=== PATIENT | male | born 1950 | race Two or more races ===

== ENCOUNTER 2025-01-03 10:14 | Emergency (ER) | payer MEDICARE, MEDICAID ==
[~2025-01-03] VITALS: Ht 172.7 cm; Wt 56.2 kg
--- NOTE | 2025-01-03 10:37 | ED.PDOC ---
History of Present Illness HPI Comments 74 y.o male with PMHx of DM, HTN, and hyperlipidemia, presents to the ED for an evaluation of insomnia. Patient has not slept for the past 6 days, states he is desperate to rest but is unable to for unknown reasons. Patient reports similar events in the past, states he was prescribed sleeping medication in which helped him sleep but mentions he ran out of them. Patient denies any pain, nausea, vomiting, diarrhea, fever, chills. Patient mentions driving himself to the ED. Chief Complaint: Anxiety Time Seen by MD: 10:25 Reviewed Notes: Nurses Notes, Medications, Allergies Allergies: Coded Allergies: NO KNOWN ALLERGIES (Unverified , 01/03/25) Information Source: Patient Mode of Arrival: EMS Severity: Moderate Timing: Days (6) Duration: Since onset Prehospital treatment: None Past Medical History PAST MEDICAL HISTORY: DM, High Lipids, HTN Surgical History (Other): Abdominal- unknown Family History Family History: Reviewed,noncontributory to illness Social History Smoker: Non-Smoker Alcohol: Denies ETOH Use Drugs: Denies Drug Use Lives In: Home Constitutional: denies: chills, diaphoresis, fatigue, fever, malaise, sweats, weakness, others EENTM: denies: blurred vision, double vision, ear bleeding, ear discharge, ear drainage, ear pain, ear ringing, eye pain, eye redness, hearing loss, mouth pain, mouth swelling, nasal discharge, nose bleeding, nose congestion, nose estrella n, photophobia, tearing, throat pain, throat swelling, voice changes, others Respiratory: denies: cough, hemoptysis, orthopnea, SOB at rest, shortness of breath, SOB with excertion, stridor, wheezing, others Cardiovascular: denies: chest pain, dizzy spells, diaphoresis, Dyspnea on exertion, edema, irregular heart beat, left arm pain, lightheadedness, palpitations, PND, syncope, others Gastrointestinal: denies: abdomen distended, abdominal pain, blood streaked bowels, constipated, diarrhea, dysphagia, difficulty swallowing, hematemesis, melena, nausea, poor appetite, poor fluid intake, rectal bleeding, rectal pain, vomiting, others Genitourinary: denies: burning, dysuria, flank pain, frequency, hematuria, incontinence, penile discharge, penile sore, pain, testicle pain, testicle swelling, urgency, others Neurological: denies: dizziness, fainting, headache, left sided numbness, left sided weakness, numbness, paresthesia, pre-existing deficit, right sided numbness, right sided weakness, seizure, speech problems, tingling, tremors, weakness, others Musculoskeletal: denies: back pain, gout, joint pain, joint swelling, muscle pain, muscle stiffness, neck pain, others Integumetry: denies: bruises, change in color, change in hair/nails, dryness, laceration, lesions, lumps, rash, wounds, others Allergic/Immunocompromised: denies: Difficulty Healing, Frequent Infections, Hives, Itching, others Hematologic/Lymphatic: denies: anemia, blood clots, easy bleeding, easy bruising, swollen glands, others Endocrine: denies: excessive hunger, excessive sweating, excessive thirst, excessive urination, flushing, intolerance to cold, intolerance to heat, unexplained weight gain, unexplained weight loss, others Psychiatric: reports: anxiety; denies: bipolar disorder, depression, hopeless, panic disorder, schizophrenia, sleepless, suicidal, others All Other Systems: Reviewed and Negative Physical Exam General Appearance: Mild Distress, Thin HEENT: Normal ENT Inspection, Pharynx Normal, TMs Normal Neck: Full Range of Motion, Non-Tender, Normal, Normal Inspection Respiratory: Chest Non-Tender, Lungs Clear, No Accessory Muscle Use, No Respiratory Distress, Normal Breath Sounds Cardiovascular: No Edema, No JVD, No Murmur, No Gallop, Normal Peripheral Pulses, Regular Rate/Rhythm Breast Exam: Deferred Gastrointestinal: No Organomegaly, Non Tender, No Pulsatile Mass, Normal Bowel Sounds, Soft Genitalia: Deferred Pelvic: Deferred Rectal: Deferred Extremities: No calf tenderness, Normal capillary refill, Normal inspection, Normal range of motion, Non-tender, No pedal edema Musculoskeletal : Apperance: Normal Neurologic: Alert, 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 Was a procedure done?: No Differential Dx Considerations may include: sleep apnea, circadian rhythm disorders, depression, anxiety X-Ray, Labs, Meds, VS Vital Signs Date Time Temp Pulse Resp B/P (MAP) Pulse Ox O2 Delivery O2 Flow Rate FiO2 01/03/25 12:30 92 14 118/65 (82) 98 01/03/25 12:30 92 14 96 Room Air* 0 21 01/03/25 11:53 100 16 98 Room Air* 0 21 01/03/25 11:44 97.9 106 17 118/71 (87) 98 97.9 01/03/25 10:32 97.9 112 18 117/77 (90) 96 97.9 Lab Test 01/03/25 12:37 01/03/25 10:44 Range/Units POC Glucose 352 H 70-106 mg/dl White Blood Count 9.0 4.4-10.8 10^3/uL Red Blood Count 4.15 L 4.5-5.90 10^6/uL Hemoglobin 13.2 L 13.5-17.5 g/dL Hematocrit 37.9 L 41.0-53.0 % Mean Corpuscular Volume 91.3 80.0-100.0 fL Mean Corpuscular Hemoglobin 31.7 28.0-32.0 pg Mean Corpuscular Hemoglobin Concent 34.8 32.0-36.0 g/dL Red Cell Distribution Width 13.2 11.8-14.3 % Platelet Count 371 140-450 10^3/uL Mean Platelet Volume 7.1 6.9-10.8 fL Neutrophils (%) (Auto) 79.3 37.0-80.0 % Lymphocytes (%) (Auto) 15.1 10.0-50.0 % Monocytes (%) (Auto) 3.6 0.0-12.0 % Eosinophils (%) (Auto) 1.4 0.0-7.0 % Basophils (%) (Auto) 0.6 0.0-2.0 % Neutrophils # (Auto) 7.1 1.6-8.6 10 ^3/uL Lymphocytes # (Auto) 1.4 0.4-5.4 10 ^3/uL Monocytes # (Auto) 0.3 0-1.3 10 ^3/uL Eosinophils # (Auto) 0.1 0-0.8 10 ^3/uL Basophils # (Auto) 0.1 0-0.2 10 ^3/uL Nucleated Red Blood Cells 0.1 % Sodium Level 129 L 136-145 mmol/L Potassium Level 3.9 3.5-5.1 mmol/L Chloride Level 95 L 98-107 mmol/L Carbon Dioxide Level 25 20-31 mmol/L Anion Gap 9 5-15 Blood Urea Nitrogen 16 9-23 mg/dL Creatinine 1.35 H 0.700-1.30 mg/dL Glomerular Filtration Rate Calc 54 >90 mL/min BUN/Creatinine Ratio 11.9 10.0-20.0 Serum Glucose 540 *H 74-106 mg/dL Calcium Level 9.6 8.7-10.4 mg/dL Current Medications Medications (Trade) Dose Ordered Sig/Julia Route Start Time Stop Time Status Last Admin Sodium Chloride 500 ml @ 500 mls/hr Q1H ONCE IV 01/03/25 11:30 01/03/25 12:29 DC 01/03/25 11:52 Insulin Human Regular (InsuLIN R) 5 units ONCE ONCE IV 01/03/25 11:30 01/03/25 11:31 DC 01/03/25 11:53 IV Hep-Lock was established. The patient had a serum glucose of 540 The BUN is 16 and the creatinine is 1.35 The patient was also hyponatremic and hypochloremic The patient is CBC is within normal limits The patient was being admitted to the hospitalist after being given insulin 5 units IV push The patient understands and is in agreement with the management The patient is admitted Time of 1ST Reevaluation: 10:37 Reevaluation 1ST: Unchanged Patient Education/Counseling: Diagnosis, Treatment, Prognosis Family Education/Counseling: No Family Present Departure 1 Departure Time of Disposition: 12:58 Impression: Primary Impression: Generalized weakness Additional Impressions: Hyperglycemia Hypochloremia Hyponatremia Disposition: ADMITTED INPATIENT Admit to: Med Surg Condition: Fair Critical Care Note Critical Care Time?: No Stability Stability form required: Yes Unstable for transfer: ED Physician Assesment (Clinical assesment) I personally scribed for ANTON CASON MD ([email or web address]) on 01/03/25 at 10:37. Electronically submitted by Oly Mark ([facility]). ANTON CASON MD Jan 03, 2025 10:37
[2025-01-03 10:55] LABS: Basophils # (auto) 0.1 10 ^3/uL (0-0.2); Basophils % (auto) 0.6 % (0.0-2.0); Eosinophils # (auto) 0.1 10 ^3/uL (0-0.8); Eosinophils % (auto) 1.4 % (0.0-7.0); Hematocrit 37.9 % (41.0-53.0); Hemoglobin 13.2 g/dL (13.5-17.5); Lymphocytes # (auto) 1.4 10 ^3/uL (0.4-5.4); Lymphocytes % (auto) 15.1 % (10.0-50.0); Mean Corpuscular Hemoglobin 31.7 pg (28.0-32.0); Mean Corpuscular Hgb Conc. 34.8 g/dL (32.0-36.0); Mean Corpuscular Volume 91.3 fL (80.0-100.0); Monocytes # (auto) 0.3 10 ^3/uL (0-1.3); Monocytes % (auto) 3.6 % (0.0-12.0); Neutrophils # (auto) 7.1 10 ^3/uL (1.6-8.6); Neutrophils % (auto) 79.3 % (37.0-80.0); Nucleated Red Blood Cells % 0.1 %; Platelet Count (auto) 371 10^3/uL (140-450); Red Blood Cells 4.15 10^6/uL (4.5-5.90); Red Cell Distribution Width 13.2 % (11.8-14.3)
[2025-01-03 11:03] LABS: Potassium 3.9 mmol/L (3.5-5.1)
[2025-01-03 11:04] LABS: Anion Gap 9 (5-15); Carbon Dioxide 25 mmol/L (20-31)
[2025-01-03 11:05] LABS: Calcium 9.6 mg/dL (8.7-10.4)
[2025-01-03 11:07] LABS: Chloride 95 mmol/L (98-107); Sodium 129 mmol/L (136-145)
[2025-01-03 11:10] LABS: BUN/Creatinine Ratio 11.9 (10.0-20.0); Blood Urea Nitrogen 16 mg/dL (9-23)
[2025-01-03 11:17] LABS: Glucose 540 mg/dL (74-106)
[2025-01-03] MEDS: SODIUM CHLORIDE 0.9% 500 ML IV ONE (11:52)
[2025-01-03 11:53] VITALS: PULSE 100; RESP 16; O2SAT 98
[2025-01-03] MEDS: InsuLIN REG 1unit/0.01ml Soln (100units/ml) IV ONE (11:53)
[2025-01-03 12:30] VITALS: PULSE 92; RESP 14; O2SAT 96
[2025-01-03 18:00] VITALS: BP 105/63; PULSE 100; RESP 22; TEMP 98.7; O2SAT 95
== END 2025-01-03 18:45 | disposition left against medical advice (07) ==
LOC: ER 10:14
DX: E87.1 Hypo-osmolality and hyponatremia (principal); E11.65 Type 2 diabetes mellitus with hyperglycemia; E87.8 Other disorders of electrolyte and fluid balance, not elsewhere classified; R53.1 Weakness; E78.5 Hyperlipidemia, unspecified; I10 Essential (primary) hypertension; G47.00 Insomnia, unspecified
CPT/HCPCS: 36415; 80048; 82947; 85025; 96374; 99285; J1815; 82962

== ENCOUNTER 2025-01-08 10:39 | Emergency (ER) | payer MEDICARE, MEDICAID ==
[~2025-01-08] VITALS: Ht 172.7 cm; Wt 56.5 kg
[2025-01-08 10:45] VITALS: BP 115/76; RESP 18; TEMP 98.6; O2SAT 96
[2025-01-08] MEDS ORDERED: SODIUM CHLORIDE 0.9% 1,000 ML IV ONE (11:00)
[2025-01-08 11:10] VITALS: PULSE 100
--- NOTE | 2025-01-08 11:10 | ED.PDOC ---
History of Present Illness HPI Comments 74 y/o M, with a history of DM, HLD, HTN, presents with c/o generalized body pain and fatigue, nonproductive cough, and confusion for the past 7x days, today. Patient is a Welsh speaker and a poor historian and endorses on ongoing symptoms following initial unprovoked onset. He describes his confusion as if he has "no control of [his] brain" sensation. Patient further informs on, recently, moving to the area from [place], [place] and not having any current PCP. He endorses on no recent sick contact, substance use/exposure, noncompliance with medications, or any further relevant/pertinent history. Patient denies any chest pain, shortness of breath, nausea, vomiting, urinary symptoms, fever, chills, or other associated symptoms or modifying factors at this time. Chief Complaint: Abdominal Pain Time Seen by MD: 10:55 Reviewed Notes: Nurses Notes, Medications, Allergies Allergies: Coded Allergies: NO KNOWN ALLERGIES (Unverified , 01/03/25) Information Source: Patient Mode of Arrival: Ambulatory Severity: Moderate Timing: Days Duration: Since onset Prehospital treatment: None Past Medical History PAST MEDICAL HISTORY: DM, High Lipids, HTN Surgical History (Other): unspecified abdominal surgery for unkown "infection" in Family History Family History: Reviewed,noncontributory to illness Social History Smoker: Non-Smoker Alcohol: Denies ETOH Use Drugs: Denies Drug Use Lives In: Home All Other Systems: Reviewed and Negative (Comprehensive systems review obtained and negative except for what is stated in the HPI.) Was a procedure done? Was a procedure done?: No EKG EKG : Pulse Rate (adult): 100 [place]: Normal Cardiac Rhythm: ST Hypertrophy: None ST: Normal Comments Left anterior fascicular block abnormal R-wave progression, early transition Differential Dx Considerations may include: viral syndrome, UTI, URI, encephalopathy, electrolyte imbalance, dehydration, musculoskeletal pain, hyperglycemia, among others X-Ray, Labs, Meds, VS Vital Signs Date Time Temp Pulse Resp B/P (MAP) Pulse Ox O2 Delivery O2 Flow Rate FiO2 01/08/25 11:10 100 01/08/25 10:55 100 01/08/25 10:45 98.6 102 18 115/76 (89) 96 98.6 Lab Test 01/08/25 11:14 01/08/25 11:00 01/08/25 10:59 Range/Units White Blood Count 7.1 4.4-10.8 10^3/uL Red Blood Count 4.44 L 4.5-5.90 10^6/uL Hemoglobin 13.7 13.5-17.5 g/dL Hematocrit 40.5 L 41.0-53.0 % Mean Corpuscular Volume 91.2 80.0-100.0 fL Mean Corpuscular Hemoglobin 30.9 28.0-32.0 pg Mean Corpuscular Hemoglobin Concent 33.8 32.0-36.0 g/dL Red Cell Distribution Width 12.9 11.8-14.3 % Platelet Count 360 140-450 10^3/uL Mean Platelet Volume 7.7 6.9-10.8 fL Neutrophils (%) (Auto) 74.7 37.0-80.0 % Lymphocytes (%) (Auto) 18.0 10.0-50.0 % Monocytes (%) (Auto) 4.2 0.0-12.0 % Eosinophils (%) (Auto) 2.2 0.0-7.0 % Basophils (%) (Auto) 0.9 0.0-2.0 % Neutrophils # (Auto) 5.3 1.6-8.6 10 ^3/uL Lymphocytes # (Auto) 1.3 0.4-5.4 10 ^3/uL Monocytes # (Auto) 0.3 0-1.3 10 ^3/uL Eosinophils # (Auto) 0.2 0-0.8 10 ^3/uL Basophils # (Auto) 0.1 0-0.2 10 ^3/uL Nucleated Red Blood Cells 0.0 % Sodium Level 129 L 136-145 mmol/L Potassium Level 4.4 3.5-5.1 mmol/L Chloride Level 95 L 98-107 mmol/L Carbon Dioxide Level 27 20-31 mmol/L Anion Gap 7 5-15 Blood Urea Nitrogen 19 9-23 mg/dL Creatinine 1.44 H 0.700-1.30 mg/dL Glomerular Filtration Rate Calc 50 >90 mL/min BUN/Creatinine Ratio 13.2 10.0-20.0 Serum Glucose 583 *H 74-106 mg/dL Calcium Level 9.8 8.7-10.4 mg/dL B-Type Natriuretic Peptide Pending Beta-Hydroxybutyric Acid Pending Thyroid Stimulating Hormone (TSH) 0.69 0.55-4.78 uIU/mL POC Glucose 584 *H 518 *H 70-106 mg/dl [place] [id number] Ph: [phone] DIAGNOSTIC IMAGING Diagnostic Imaging Report : [id number] Signed PATIENT: JOSE CAICEDO ACCT: [id number] UNIT: [id number] : 1950 LOC: ER ROOM / BED: / AGE / SEX: 74 / M ADM STATUS: REG ER SERVICE 105 ORDERING PHYSICIAN: DENI LOVE MD PROCEDURE(s): CXR1 - CHEST XRAY 1 VIEW REASON: COUGH ORDER NUMBER(s): [id number], ACCESSION NUMBER(s): [id number] EXAM: XY CHEST XRAY 1 VIEW REASON FOR EXAM: COUGH TECHNIQUE: 1 view of the chest COMPARISON: None FINDINGS: LUNGS: No pleural effusion, consolidation, or pneumothorax MEDIASTINUM: Normal cardiac size BONES: Multiple acute, displaced left posterolateral extensive rib fractures which predisposes the patient to flail chest. Likely multi segmental nature of the left posterolateral ribcage. OTHER: None IMPRESSION: 1. Left posterolateral extensive displaced rib fractures without definitive radiographically apparent pneumothorax however highly likely component of underlying pneumothorax. ATED BY: BHAKTI STALLINGS MD DICTATED DATE/TIME: 01/08/25 112 SIGNED BY: BHAKTI STALLINGS MD SIGNED DATE/TIME: 01/08/25 112 CC: [place] [id number] Ph: [phone] DIAGNOSTIC IMAGING Diagnostic Imaging Report : [id number] Signed PATIENT: JOSE CAICEDO ACCT: [id number] UNIT: [id number] : 1950 LOC: ER ROOM / BED: / AGE / SEX: 74 / M ADM STATUS: REG ER SERVICE 105 ORDERING PHYSICIAN: DENI LOVE MD PROCEDURE(s): ABPL - CT AB PEL WO CON-NO ORAL OR IV REASON: abd pain, history of abd surgery in 1989 due to "infection" ORDER NUMBER(s): [id number], ACCESSION NUMBER(s): [id number] CT ABDOMEN AND PELVIS WITHOUT CONTRAST CLINICAL HISTORY: abd pain, history of abd surgery in 1989 due to infection TECHNIQUE: Multiple contiguous axial images of the abdomen and pelvis without intravenous contrast. The images were reformatted degenerate coronal and sagittal reconstructions. All CT scans at this medical facility are performed using dose modulation techniques as appropriate to a performed exam including the following:Automated exposure control was utilized; adjustment of the MA and/or KV according to patient size; and use of iterative reconstruction technique. Radiation Dose Information: CT Dose: CTDI volume is 5.11 mGy. Dose-length product is 259.43 mGy*cm Comparison: None FINDINGS: Evaluation of the abdomen and pelvis is limited without intravenous contrast. The left adrenal gland appears thickened likely related to hyperplasia. The right adrenal gland appears within normal limits. The liver, gallbladder, pancreas, kidneys, and spleen appear within normal limits. There is no gross evidence of abdominal lymphadenopathy. There is no free fluid or free air. The stomach grossly appears unremarkable. The small and large bowel loops demonstrate normal caliber and distribution. There is moderate amount of stool in the colon. The appendix is not seen in the right lower quadrant abdomen. There are no secondary signs of acute appendicitis. The abdominal aorta and IVC appear within normal limits. The prostate gland is enlarged and indents the base of the bladder. Bladder appears within normal limits for the degree of distention.. There is no gross evidence of a pelvic mass. There is no free fluid collection. There is pleural-parenchymal scarring in the left lung base. There is a chronic appearing comminuted fracture deformity of the left iliac wing. There is levoconvex scoliosis of the lumbar spine with degenerative changes . IMPRESSION: 1. There is no acute process in the abdomen and pelvis. 2. Moderate amount of stool in the colon. 3. Prostatomegaly. 4. Chronic appearing comminuted fracture deformity of the left iliac wing. HS:Y ATED BY: CARMELO YAÑEZ MD DICTATED DATE/TIME: 01/08/25 1126 SIGNED BY: CARMELO YAÑEZ MD SIGNED DATE/TIME: 01/08/25 1126 CC: Time of 1ST Reevaluation: 11:25 Reevaluation 1ST: Unchanged Patient Education/Counseling: Diagnosis, Treatment Family Education/Counseling: No Family Present Additional Information Previous medical encounters reviewed: January 03, 2025 encounter for "sleeping problems" The following tests were ordered, and results were reviewed by me: CT abdomen/pelvis w/o contrast, CXR, UA, TSH levels, COVID19/Influenza A/B tests, CBC, BMP, BNP Additional Information was gathered from interviewing the following independent historians: N/A I reviewed and agreed with the following test results read by other providers: CT abdomen/pelvis w/o contrast, CXR I discussed treatment and results with medical personnel and: Patient Critical Care Note Critical Care Time?: No Stability Stability form required: No Heart Score Heart Score: Heart Score Response (Comments) Value History N/A 0 EKG N/A 0 Age N/A 0 Risk Factors N/A 0 Troponin N/A 0 Total 0 JESS DODSON Jan 08, 2025 11:10
--- NOTE | 2025-01-08 11:11 | ECG ---
[facility] Test Date: 2025-01-08 Test Time: 10:55:15 Pat Name: JOSE CAICEDO Department: ER Room: Gender: M Customer Professional: CARLA : 1950 Requested By: DENI LOVE Order Number: [id number] Reading MD: Measurements Intervals [employer] Rate: 100 P: 63 MS: 119 QRS: -48 QRSD: 99 T: 60 QT: 336 QTc: 434 Interpretive Statements Sinus tachycardia Left anterior fascicular block Abnormal R-wave progression, early transition Probable left ventricular hypertrophy Please click the below link to view image of tracing.
--- NOTE | 2025-01-08 11:24 | DVH ---
EXAM: XY CHEST XRAY 1 VIEW REASON FOR EXAM: COUGH TECHNIQUE: 1 view of the chest COMPARISON: None FINDINGS: LUNGS: No pleural effusion, consolidation, or pneumothorax MEDIASTINUM: Normal cardiac size BONES: Multiple acute, displaced left posterolateral extensive rib fractures which predisposes the pa tient to flail chest. Likely multi segmental nature of the left posterolateral ribcage. OTHER: None IMPRESSION: 1. Left posterolateral extensive displaced rib fractures without definitive radiographically apparent pneumothorax however highly likely component of underlying pneumothorax.
--- NOTE | 2025-01-08 11:28 | DVH ---
CT ABDOMEN AND PELVIS WITHOUT CONTRAST CLINICAL HISTORY: abd pain, history of abd surgery in 1989 due to infection TECHNIQUE: Multiple contiguous axial images of the abdomen and pelvis without intravenous contrast. T he images were reformatted degenerate coronal and sagittal reconstructions. All CT scans at this medical facility are performed using dose modulation techniques as appropriate t o a performed exam including the following:Automated exposure control was utilized; adjustment of the MA and/or KV according to patient size; and use of iterative reconstruction technique. Radiation Dose Information: CT Dose: CTDI volume is 5.11 mGy. Dose-length product is 259.43 mGy*cm Comparison: None FINDINGS: Evaluation of the abdomen and pelvis is limited without intravenous contrast. The left adrenal gland appears thickened likely related to hyperplasia. The right adrenal gland appea rs within normal limits. The liver, gallbladder, pancreas, kidneys, and spleen appear within loki l limits. There is no gross evidence of abdominal lymphadenopathy. There is no free fluid or free air. The stomach grossly appears unremarkable. The small and large bowel loops demonstrate normal caliber and distribution. There is moderate amount of stool in the colon. The appendix is not seen in the [facility] lower quadrant abdomen. There are no secondary signs of acute appendicitis. The abdominal aorta and IVC appear within normal limits. The prostate gland is enlarged and indents the base of the bladder. Bladder appears within normal herrera its for the degree of distention.. There is no gross evidence of a pelvic mass. There is no free flu id collection. There is pleural-parenchymal scarring in the left lung base. There is a chronic appearing comminuted fracture deformity of the left iliac wing. There is levoconve x scoliosis of the lumbar spine with degenerative changes . IMPRESSION: 1. There is no acute process in the abdomen and pelvis. 2. Moderate amount of stool in the colon. 3. Prostatomegaly. 4. Chronic appearing comminuted fracture deformity of the left iliac wing. HS:Y
[2025-01-08 11:34] LABS: Basophils # (auto) 0.1 10 ^3/uL (0-0.2); Basophils % (auto) 0.9 % (0.0-2.0); Eosinophils # (auto) 0.2 10 ^3/uL (0-0.8); Eosinophils % (auto) 2.2 % (0.0-7.0); Hematocrit 40.5 % (41.0-53.0); Hemoglobin 13.7 g/dL (13.5-17.5); Lymphocytes # (auto) 1.3 10 ^3/uL (0.4-5.4); Mean Corpuscular Hemoglobin 30.9 pg (28.0-32.0); Mean Corpuscular Hgb Conc. 33.8 g/dL (32.0-36.0); Mean Corpuscular Volume 91.2 fL (80.0-100.0); Monocytes # (auto) 0.3 10 ^3/uL (0-1.3); Monocytes % (auto) 4.2 % (0.0-12.0); Neutrophils # (auto) 5.3 10 ^3/uL (1.6-8.6); Neutrophils % (auto) 74.7 % (37.0-80.0); Platelet Count (auto) 360 10^3/uL (140-450); Red Blood Cells 4.44 10^6/uL (4.5-5.90); Red Cell Distribution Width 12.9 % (11.8-14.3); White Blood Cell 7.1 10^3/uL (4.4-10.8)
[2025-01-08 11:43] LABS: Anion Gap 7 (5-15); Carbon Dioxide 27 mmol/L (20-31); Potassium 4.4 mmol/L (3.5-5.1)
[2025-01-08 11:44] LABS: Calcium 9.8 mg/dL (8.7-10.4)
[2025-01-08 11:45] LABS: Chloride 95 mmol/L (98-107); Sodium 129 mmol/L (136-145)
[2025-01-08 11:49] LABS: BUN/Creatinine Ratio 13.2 (10.0-20.0); Blood Urea Nitrogen 19 mg/dL (9-23)
[2025-01-08 11:55] LABS: Glucose 583 mg/dL (74-106)
[2025-01-08 12:29] LABS: Urine Bacteria None Seen /hpf (None Seen)
[2025-01-08 12:42] LABS: Urine Blood Negative /uL (Negative); Urine Clarity Clear (Clear); Urine Color Light-Yellow (Yellow); Urine Mucus FEW (None Seen); Urine Protein, UAD Negative (Negative); Urine Squamous Epithelial Cell FEW /hpf (<5); Urine Urobilinogen Normal (Negative); Urine WBC 1 /HPF (0-3)
== END 2025-01-08 12:30 | disposition left against medical advice (07) ==
LOC: ER 10:39
DX: M79.10 Myalgia, unspecified site (principal); R05.9 Cough, unspecified; R41.0 Disorientation, unspecified; E11.9 Type 2 diabetes mellitus without complications; E78.5 Hyperlipidemia, unspecified; I10 Essential (primary) hypertension; Z79.899 Other long term (current) drug therapy
CPT/HCPCS: 36415; 71045; 74176; 80048; 81001; 82010; 82947; 82962; 83880; 84443; 85025; 93005